=== PATIENT | male | born 1950 | race Caucasian/White ===

== ENCOUNTER 2025-07-09 11:41 | Inpatient (IN) | payer MEDICARE ==
[~2025-07-09 11:41] MED LIST: Aspirin Chewable 81 MG TAB ONE; Heparin 10,000 UNITS/ 10 ML VIAL ONE; Heparin 25,000 UNITS/D5W 500 ml bag ONE; Iopamidol 300 61% 100 ML VIAL FS ONE
[2025-07-09] MEDS ORDERED: Heparin 10,000 UNITS/ 10 ML VIAL ONE (12:10)
[2025-07-09] MEDS ORDERED: Lidocaine 1% (PF) 30 ML VIAL ONE (12:10)
[2025-07-09] MEDS ORDERED: PHENYLEPHRINE-NS 100 MCG/ML 10 ML SYRINGE ONE (12:10)
[2025-07-09 12:12] LABS: #Basophils 0.04 10x3/uL (0.0-0.2); #Eosinophils Less than 0.03 10x3/uL (0.0-0.5); #Monocytes 0.37 10x3/uL (0.0-1.1); #Neutrophils 12.59 10x3/uL (1.5-8.4); %Basophils 0.3 % (0.0-2.0); %Eosinophils 0.1 % (0.0-6.0); %Lymphocytes 3.4 % (18.0-47.0); %Monocytes 2.7 % (0.0-10.0); %Neutrophils 93.0 % (40.0-75.0); Hematocrit 44.7 % (38.8-50.0); Hemoglobin 15.5 g/dL (13.5-17.5); Mean Corpuscular Hemoglobin 30.9 pg (27.0-33.0); Mean Corpuscular Volume 89.0 fL (81.2-95.1); Platelet Count 166 10x3/uL (150-450); Red Blood Cell (RBC) Count 5.02 10x6/uL (4.32-5.72); White Blood Cell (WBC) Count 13.55 10x3/uL (3.5-10.5)
[2025-07-09] MEDS ORDERED: Nitroglycerin 50 MG/250 ML BOT 250 ML ONE (12:19)
[2025-07-09 12:38] LABS: ALT (SGPT) 21 U/L (Less than 45); AST (SGOT) 43 U/L (11-34); Albumin 4.4 g/dL (3.1-4.5); Alkaline Phosphatase 61 U/L (40-110); Anion Gap 14 mmol/L (10-20); BUN (Urea Nitrogen) 10 mg/dL (8.4-25.7); Bilirubin, Total 0.8 mg/dL (0.3-1.2); Calc. Creatinine Clearance 0 mL/min (70-130); Calcium 9.3 mg/dL (7.8-10.44); Carbon Dioxide 25 mmol/L (23-31); Chloride 103 mmol/L (98-107); Globulin 3.2 g/dL (2.4-3.5); Glucose 146 mg/dL (83-110); Potassium 4.1 mmol/L (3.5-5.1); Sodium 138 mmol/L (136-145)
[2025-07-09 12:40] LABS: Troponin I 1.330 ng/mL (< 0.028)
[2025-07-09] MEDS ORDERED: Adenosine 6 mg (2 mL) VIAL ONE (13:06)
[2025-07-09] MEDS ORDERED: TICAGRELOR 90 MG TABLET ONE (13:24)
[2025-07-09] MEDS ORDERED: Ondansetron PF 4 MG/2 ML Vial ONE (13:52)
[2025-07-09 16:58] VITALS: BMI 32.8
[2025-07-09] MEDS: Enoxaparin 80 MG (0.8 mL) SYRINGE SC SCH (21:01)
[2025-07-09] MEDS: FLU (Fluad Triv) 25-26 (65UP)PF 45 MCG/0.5 ML Syringe IM ONE (21:01)
[2025-07-09] MEDS: PNEUMOC 20-VAL CONJ-DIP CRM/PF 0.5 ML SYRINGE IM ONE (21:01)
[2025-07-09] MEDS: Carvedilol 6.25 MG TAB PO SCH (21:05)
[2025-07-10 03:59] LABS: #Basophils 0.03 10x3/uL (0.0-0.2); #Eosinophils 0.06 10x3/uL (0.0-0.5); #Monocytes 0.87 10x3/uL (0.0-1.1); #Neutrophils 8.90 10x3/uL (1.5-8.4); %Basophils 0.3 % (0.0-2.0); %Eosinophils 0.6 % (0.0-6.0); %Lymphocytes 8.1 % (18.0-47.0); %Monocytes 8.1 % (0.0-10.0); %Neutrophils 82.6 % (40.0-75.0); Hematocrit 38.9 % (38.8-50.0); Hemoglobin 13.5 g/dL (13.5-17.5); Mean Corpuscular Hemoglobin 31.0 pg (27.0-33.0); Mean Corpuscular Volume 89.2 fL (81.2-95.1); Platelet Count 141 10x3/uL (150-450); Red Blood Cell (RBC) Count 4.36 10x6/uL (4.32-5.72); White Blood Cell (WBC) Count 10.76 10x3/uL (3.5-10.5)
[2025-07-10 04:10] LABS: Anion Gap 11 mmol/L (10-20); BUN (Urea Nitrogen) 11 mg/dL (8.4-25.7); Calc. Creatinine Clearance 101 mL/min (70-130); Calcium 8.4 mg/dL (7.8-10.44); Carbon Dioxide 23 mmol/L (23-31); Cardiac Risk 4.5 (Less than 4.5); Chloride 107 mmol/L (98-107); Cholesterol 127 mg/dl (< 200 Desired); Glucose 112 mg/dL (83-110); HDL Cholesterol 28 mg/dL (>60 Neg Risk); LDL Cholesterol, Calculated 80 mg/dL; Potassium 3.9 mmol/L (3.5-5.1); Sodium 137 mmol/L (136-145); Triglycerides 97 mg/dL (Less than 150)
[2025-07-10] MEDS: TICAGRELOR 90 MG TABLET PO SCH (08:42)
[2025-07-10] MEDS: Losartan 25 MG TAB PO SCH ×2 (08:42→15:00)
[2025-07-10] MEDS: Aspirin Chewable 81 MG TAB PO SCH (08:42)
[2025-07-10] MEDS: Enoxaparin 30 MG (0.3 mL) SYRINGE SC SCH (08:45)
[2025-07-10] MEDS ORDERED: Enoxaparin 30 MG (0.3 mL) SYRINGE SC SCH (09:00)
[2025-07-10 11:02] LABS: Troponin I 29.630 ng/mL (< 0.028)
[2025-07-10] MEDS: Rosuvastatin 10 MG TAB PO SCH (20:16)
[2025-07-11 07:26] LABS: Anion Gap 11 mmol/L (10-20); BUN (Urea Nitrogen) 16 mg/dL (8.4-25.7); Calc. Creatinine Clearance 95 mL/min (70-130); Calcium 9.1 mg/dL (7.8-10.44); Carbon Dioxide 25 mmol/L (23-31); Chloride 104 mmol/L (98-107); Glucose 105 mg/dL (83-110); Potassium 3.9 mmol/L (3.5-5.1); Sodium 136 mmol/L (136-145)
[2025-07-11 07:32] LABS: #Basophils 0.03 10x3/uL (0.0-0.2); #Eosinophils 0.20 10x3/uL (0.0-0.5); #Monocytes 0.93 10x3/uL (0.0-1.1); #Neutrophils 6.59 10x3/uL (1.5-8.4); %Basophils 0.3 % (0.0-2.0); %Eosinophils 2.2 % (0.0-6.0); %Lymphocytes 13.5 % (18.0-47.0); %Monocytes 10.3 % (0.0-10.0); %Neutrophils 73.4 % (40.0-75.0); Hematocrit 43.0 % (38.8-50.0); Hemoglobin 14.3 g/dL (13.5-17.5); Mean Corpuscular Hemoglobin 30.2 pg (27.0-33.0); Mean Corpuscular Volume 90.7 fL (81.2-95.1); Platelet Count 149 10x3/uL (150-450); Red Blood Cell (RBC) Count 4.74 10x6/uL (4.32-5.72); White Blood Cell (WBC) Count 8.99 10x3/uL (3.5-10.5)
[2025-07-11 07:35] LABS: Troponin I 18.852 ng/mL (< 0.028)
[2025-07-11] MEDS: Losartan 50 MG TAB PO SCH (09:33)
[2025-07-11 09:38] VITALS: BP 135/79
[2025-07-11 10:01] VITALS: TEMP 98.1
== END 2025-07-11 13:55 | disposition home or self-care (01) | DRG 322 ==
LOC: CSHERS 11:41 → CSHICU 14:58
PROVIDERS: ADMIT Specialist; ATTEND Family Medicine
PROC: 027034Z Dilation of Coronary Artery, One Artery with Drug-eluting Intraluminal Device, Percutaneous Approach (ICD-10-PCS; principal; 2025-07-09)
DX: I21.3 ST elevation (STEMI) myocardial infarction of unspecified site (principal); R07.9 Chest pain, unspecified; I10 Essential (primary) hypertension; G47.33 Obstructive sleep apnea (adult) (pediatric); K25.9 Gastric ulcer, unspecified as acute or chronic, without hemorrhage or perforation; I25.10 Atherosclerotic heart disease of native coronary artery without angina pectoris; Z90.49 Acquired absence of other specified parts of digestive tract; Z88.8 Allergy status to other drugs, medicaments and biological substances; E66.9 Obesity, unspecified; Z68.32 Body mass index [BMI] 32.0-32.9, adult
CPT/HCPCS: 36415; 71045; 80048; 80053; 80061; 84484; 85025; 85347; 92941; 92978; 92979; 93005; 93010; 93458; 99152; 99153; C1753; C1760; C1769; C1874; C1887; C9606; J0153; J0461; J1644; J1650; J2003; J2250; J2405; J3010; Q9967